=== PATIENT | male | born 1990 | race African-American/Black ===

== ENCOUNTER 2024-10-31 16:25 | Emergency (ER) | payer SELFPAY ==
[~2024-10-31] VITALS: Wt 102.1 kg
[2024-10-31] MEDS ORDERED: METHOCARBAMOL 500 MG TAB PO ONE (17:00)
[2024-10-31] MEDS ORDERED: methylPREDNISolone sod succ 125 MG VIAL IM ONE (17:00)
[2024-10-31] MEDS ORDERED: Ketorolac Tromethamine 30 MG/ML VIAL IM ONE (17:00)
[2024-10-31] MEDS ORDERED: Water, Sterile 10 ML VIAL ONE (17:20)
[2024-10-31] MEDS ORDERED: NAPROSYN500 MG PO (17:37)
[2024-10-31] MEDS ORDERED: METHOCARBAMOL500 M1 PO (17:37)
[2024-10-31] MEDS ORDERED: PREDNISONE50 MG PO (17:37)
== END 2024-10-31 17:41 | disposition home or self-care (01) ==
LOC: ED 16:25
DX: M54.50 Low back pain, unspecified (principal)

== ENCOUNTER 2024-11-07 02:07 | Emergency (ER) | payer SELFPAY ==
[~2024-11-07] VITALS: Ht 190.5 cm; Wt 102.1 kg
[~2024-11-07 02:07] MED LIST: METHOCARBAMOL500 M1 PO; NAPROSYN500 MG PO; PREDNISONE50 MG PO
[2024-11-07] MEDS ORDERED: MG-AL HYDROXIDE/SIMETICONE 30 ML UDC PO STA (02:32)
[2024-11-07] MEDS ORDERED: Lidocaine Hydrochloride 15 ML UDC PO STA (02:32)
[2024-11-07] MEDS ORDERED: Dicyclomine Hydrochloride 20 MG/10 ML OSYR PO STA (02:32)
[2024-11-07] MEDS ORDERED: Pantoprazole Sodium 20 MG TAB PO ONE ×2 (02:55→03:00)
[2024-11-07] MEDS ORDERED: OMEPRAZOLE40 MG PO ×2 (03:01→11:39)
== END 2024-11-07 02:53 | disposition home or self-care (01) ==
LOC: ED 02:07
DX: K21.9 Gastro-esophageal reflux disease without esophagitis (principal); Z79.899 Other long term (current) drug therapy